=== PATIENT | female | born 1990 | race Two or more races ===

== ENCOUNTER 2022-06-26 18:48 | Emergency (ER) | payer OTHER ==
[~2022-06-26] VITALS: Ht 152.4 cm; Wt 111.1 kg
== END 2022-06-26 20:48 | disposition home or self-care (01) ==
LOC: ER 18:48
DX: O26.891 Other specified pregnancy related conditions, first trimester (principal); Z3A.01 Less than 8 weeks gestation of pregnancy; R10.2 Pelvic and perineal pain; Z88.0 Allergy status to penicillin; O34.81 Maternal care for other abnormalities of pelvic organs, first trimester; N83.202 Unspecified ovarian cyst, left side

== ENCOUNTER 2022-08-11 14:19 | Emergency (ER) | payer OTHER ==
[~2022-08-11] VITALS: Ht 162.6 cm; Wt 100.7 kg
[2022-08-11] MEDS ORDERED: PRENATAL + DHA1 EAC1 PO (14:28)
== END 2022-08-11 22:51 | disposition home or self-care (01) ==
LOC: ER 14:19
DX: O23.41 Unspecified infection of urinary tract in pregnancy, first trimester (principal); N39.0 Urinary tract infection, site not specified; Z3A.11 11 weeks gestation of pregnancy; R10.2 Pelvic and perineal pain; Z88.0 Allergy status to penicillin

== ENCOUNTER 2022-10-09 10:35 | Outpatient (CLI) | payer OTHER ==
[~2022-10-09 10:35] MED LIST: PRENATAL + DHA1 EAC1 PO
== END 2022-10-09 12:20 | disposition home or self-care (01) ==
LOC: PRENATAL 10:35
PROVIDERS: ATTEND Obstetrics & Gynecology Maternal & Fetal Medicine
DX: O35.9XX0 Maternal care for (suspected) fetal abnormality and damage, unspecified, not applicable or unspecified (principal); O35.3XX0 Maternal care for (suspected) damage to fetus from viral disease in mother, not applicable or unspecified; O99.210 Obesity complicating pregnancy, unspecified trimester